=== PATIENT | female | born 1965 | race Hispanic/Latino ===

== ENCOUNTER → 2020-11-16 | Outpatient (CLI) | payer BC | END | disposition home or self-care (01) | LOC: RAH 15:40 | PROVIDERS: ATTEND Family Medicine | DX: Z12.31 Encounter for screening mammogram for malignant neoplasm of breast (principal) | CPT/HCPCS: 77067 ==

== ENCOUNTER 2024-07-03 07:34 | Day surgery (SDC) | payer BC ==
[2024-07-01 12:51] VITALS: BP 132/74; PULSE 61; RESP 18; TEMP 97.7
[2024-07-01 13:06] LABS: BASOPHILS # (AUTO) 0.02 K/uL (0.00-0.20); BASOPHILS % (AUTO) 0.4 % (0.0-5.0); EOSINOPHILS # (AUTO) 0.03 K/uL (0.00-0.70); EOSINOPHILS % (AUTO) 0.6 % (0.0-8.0); HEMATOCRIT 39.3 % (36-48); IMMATURE GRANULOCYTE ABSOLUTE 0.01 K/uL (0-1); LYMPHOCYTES # (AUTO) 1.8 K/uL (1.0-4.8); LYMPHOCYTES % (AUTO) 35.1 % (21.0-51.0); MEAN CORPUSCULAR HEMOGLOBIN 25.5 pg (27.0-33.0); MEAN CORPUSCULAR VOLUME 82.2 fL (79-99); MONOCYTES # (AUTO) 0.3 K/uL (0.1-1.0); MONOCYTES % (AUTO) 6.8 % (3.0-13.0); NEUTROPHILS # (AUTO) 2.9 K/uL (1.8-7.7); NEUTROPHILS % (AUTO) 56.9 % (40.0-77.0); PLATELET COUNT (AUTO) 228 K/uL (130-400); RED BLOOD CELL COUNT(AUTO) 4.78 MIL/uL (4.00-5.50); RED CELL DISTRIBUTION WIDTH 15.3 % (11.0-15.5)
[2024-07-01 13:13] LABS: CREATININE 0.8 mg/dL (0.5-1.0); POTASSIUM 4.3 mmol/L (3.5-5.1)
[~2024-07-03] VITALS: Ht 154.9 cm; Wt 51.9 kg
[2024-07-03] VITALS (13 sets, daily range): BP systolic 90–133; BP diastolic 53–85; PULSE 58–88; RESP 8–17; TEMP 96.8–97.8
[~2024-07-03 07:34] MED LIST: BUSP10TA3 PO; MAGN100T PO; MULT-1367 PO; SILVER NITRATE APPLICATOR 1 SWAB TP ONE; THYROID PO; VITAMIN D PO; [UNRECOGNIZED DRUG - OTHER] PO
[2024-07-03] MEDS: LACTATED RINGERS 1000ML 1,000 ML IV ONE (08:13)
[2024-07-03] MEDS ORDERED: dexaMETHasone SOD PHOSPHATE 10MG/ML 1ML VIAL ONE (08:27)
[2024-07-03] MEDS ORDERED: LIDOCAINE PF 100MG/5ML (2%) SYRINGE 5ML ONE (08:28)
[2024-07-03] MEDS ORDERED: GLYCOPYRROLATE 0.2 MG/ML 5 ML VIAL ONE (08:28)
[2024-07-03] MEDS ORDERED: ondanSETRON 4MG INJ ONE (08:28)
[2024-07-03] MEDS ORDERED: rocuRONium bROMide 10MG/1ML 5ML VL ONE (08:29)
[2024-07-03] MEDS ORDERED: SUCCINYLCHOLINE CHLORIDE 20 MG/ML 10 ML VIAL ONE (08:29)
[2024-07-03] MEDS ORDERED: FENTanyl CITRate PF 50 MCG/1 ML 2ML VIAL ONE (08:29)
[2024-07-03] MEDS ORDERED: proPOFol 10 MG/ML 20ML VIAL IV ONE (08:29)
[2024-07-03] MEDS ORDERED: NEOSTIGMINE METHYLSULFATE 1MG/ML IV ONE (08:29)
[2024-07-03] MEDS ORDERED: MIDAZOLAM HCL 1 MG/ML 2ML VIAL ONE (08:38)
[2024-07-03] MEDS ORDERED: ketOROlac 30MG VIAL (30MG/ML) ONE (09:22)
--- NOTE | 2024-07-03 09:39 | OP ---
Operative Note: DATE OF PROCEDURE: 07/03/24 SURGEON: ZARINA CARDONA MD ENTREPRENEURIAL FINANCE PROFESSOR: [na] ANESTHESIA: [general] ANESTHESIOLOGIST/CRABBING MACHINE OPERATOR: [general] PREOPERATIVE DIAGNOSIS: [postmenopausal bleeding] POSTOPERATIVE DIAGNOSIS: [same plus polyp] SYNOPSIS: [na] PROCEDURE: [Hysteroscopy D&C] ESTIMATED BLOOD LOSS: [minimal] INDICATIONS: [na] DESCRIPTION OF PROCEDURE: [the patient and her were visited in the holding area and the operation was stated in plain Polish and she had no additional questions and was ready to proceed. She was taken to the operating room and placed under general anesthesia and prepped and draped in the usual sterile fashion in the dorsal lithotomy position and her bladder was drained. A time out was taken to confirm her identity, allergies, medication administration and the planned procedure. A right angle was placed in the vagina and the cervix was visualized and grasped with a single tooth tenaculum, descended only 1/3, sounded to 6-7 cm and dilated to 7-8 mm and the hysteroscope with sterile saline distension media was used to visualize the interior of the uterus with normal quezada seen and a small polyp nearthe left tubal ostium. The hysteroscope was removed and all surfaces were curetted until gritty with only scanty tissue obtained and the hysteroscope was replaced and a small amount of polyp remained, curettage was carried out again and the area was clean. The single tooth tenaculum and right angle were removed, there was scanty bleeding at the conclusion of the case. The patient tolerated the procedure well and sponge, lap and needle counts were correct at the end of the case. Photos were taken. The patient's waws called and notified of the findings and the patient's stability. Zarina Cardona MD ] ZARINA CARDONA MD Jul 03, 2024 09:39
--- NOTE | 2024-07-03 10:55 | NUR ---
Full and complete discharge instructions given to Patient and Family both verbally and in writing. All questions answered. Tolerating PO fluids well. Voiced understanding to [employer] Surical procedure and follow up. OB pad clean and dry.PIV removed with catheter tip intact. Voided large amount of Urine in bathroom. W\C to POV with Family to home.
== END 2024-07-03 11:05 | disposition home or self-care (01) ==
LOC: DAH 07:34
PROVIDERS: ATTEND Obstetrics & Gynecology
DX: N95.0 Postmenopausal bleeding (principal); R93.89 Abnormal findings on diagnostic imaging of other specified body structures; N83.9 Noninflammatory disorder of ovary, fallopian tube and broad ligament, unspecified; N93.8 Other specified abnormal uterine and vaginal bleeding; E66.9 Obesity, unspecified; Z68.21 Body mass index [BMI] 21.0-21.9, adult; Z79.899 Other long term (current) drug therapy; Z98.890 Other specified postprocedural states; Z98.51 Tubal ligation status
CPT/HCPCS: 80048; 84703; 85025; 36415; 58558; 88305; A6260; A4663 ×2; J7030; A4351; A4355; J7120; J3010; J1100; J0330; J3490 ×2; J2003; J2250; J2704; J2405; J1885; J2710; A4215; A4223; A4222; A4221